=== PATIENT | female | born 1985 | race Caucasian/White ===

== ENCOUNTER 2018-07-22 17:50 | Emergency (ER) | payer MEDICAID ==
--- NOTE | 2018-07-22 19:23 | EDM.PDOC ---
ED HPI GENERAL MEDICAL PROBLEM - General Chief Complaint: General Stated Complaint: DENTAL PAIN AND KIDNEY PAIN Time Seen by Provider: 07/22/18 18:29 Source of Information: Reports: Patient, RN Notes Reviewed - History of Present Illness INITIAL COMMENTS - FREE TEXT/NARRATIVE: 32-year-old female comes in with complaints of dental discomfort, right upper lateral incisors and canine and also complaining of voiding frequency and dysuria. Voiding frequency and dysuria started about 2 or 3 days ago, getting worse and now has radiation of pain into her back as well. Was or vomiting fever or chills. The dental pain she has had for a long long time but that has been more bothersome the last several days. Right Upper Tooth/Teeth Pain Score (Numeric/FACES): 7 Left Flank Pain Score (Numeric/FACES): 6 - Related Data Allergies Allergy/AdvReac Type Severity Reaction Status Date / Time latex Allergy Hives Verified 07/22/18 18:28 c-chlor Allergy Other Uncoded 07/22/18 18:28 Home Meds: Home Meds Acetaminophen/HYDROcodone [[place] 325-5 MG] 1 tab PO Q6H PRN #14 tablet 07/22/18 [Rx] Past Medical History RESPIRATORY SUPPORT TECHNICIAN History: Reports: Other (See Below) Other RESPIRATORY SUPPORT TECHNICIAN History: - Past Surgical History HEENT Surgical History: Reports: Tonsillectomy Social & Family History - Tobacco Use Smoking Status *Q: Current Every Day Smoker Years of Tobacco use: 15 Packs/Tins Daily: 0.5 - Caffeine Use Caffeine Use: Reports: Coffee - Recreational Drug Use Recreational Drug Use: No ED ROS GENERAL - Review of Systems Review Of Systems: See Below Constitutional: Denies: Fever, Chills, Diaphoresis HEENT: Reports: Dental Pain. Denies: Throat Pain Respiratory: Denies: Shortness of Breath Cardiovascular: Denies: Chest Pain GI/Abdominal: Denies: Abdominal Pain, Nausea, Vomiting : Reports: Dysuria, Frequency Musculoskeletal: Reports: Back Pain Neurological: Reports: No Symptoms ED EXAM, GENERAL - Physical Exam Exam: See Below General Appearance: Alert, No Apparent Distress Eye Exam: Bilateral Eye: PERRL Throat/Mouth: Other (Severe cavitation right lateral incisor and right upper canine) Head: Facial Tenderness (Mild right maxillary area). No: Facial Swelling Neck: Supple, Full Range of Motion Respiratory/Chest: No Respiratory Distress, Lungs Clear, Normal Breath Sounds Cardiovascular: Regular Rate, Rhythm GI/Abdominal: Non-Tender Back Exam: Other (Back nontender). No: CVA Tenderness (L), CVA Tenderness (R) Extremities: Normal Inspection Neurological: Alert, No Motor/Sensory Deficits Skin Exam: Warm, Dry, Normal Color Course - Vital Signs Last Recorded V/S: Last Vital Signs Temp 97.2 F 07/22/18 18:21 Pulse 105 H 07/22/18 18:21 Resp 16 07/22/18 18:21 BP 131/98 H 07/22/18 18:21 Pulse Ox 99 07/22/18 18:21 - Orders/Labs/Meds Labs: Laboratory Tests 07/22/18 07/22/18 Range/Units 19:10 19:44 WBC 12.62 H (3.98-10.04) K/mm3 RBC 4.86 (3.98-5.22) M/mm3 Hgb 14.9 (11.2-15.7) gm/L Hct 44.4 (34.1-44.9) % MCV 91.4 (79.4-94.8) fl MCH 30.7 (25.6-32.2) pg MCHC 33.6 (32.2-35.5) g/dl RDW Std Deviation 41.1 (36.4-46.3) fL Plt Count 254 (182-369) K/mm3 MPV 11.0 (9.4-12.3) fl Neut % (Auto) 62.1 (34.0-71.1) % Lymph % (Auto) 29.6 (19.3-51.7) % [place] % (Auto) 7.1 (4.7-12.5) % Eos % (Auto) 0.6 L (0.7-5.8) Baso % (Auto) 0.4 (0.1-1.2) % Neut # (Auto) 7.84 H (1.56-6.13) K/mm3 Lymph # (Auto) 3.73 (1.18-3.74) K/mm3 Banner # (Auto) 0.90 H (0.24-0.36) K/mm3 Eos # (Auto) 0.08 (0.04-0.36) K/mm3 Baso # (Auto) 0.05 (0.01-0.08) K/mm3 Urine Color Yellow (Yellow) Urine Appearance Clear (Clear) Urine pH 6.0 (5.0-8.0) Ur Specific [place] > or = 1.030 (1.005-1.030) Urine Protein Trace H (Negative) Urine Glucose (UA) Negative (Negative) Urine Ketones Trace H (Negative) Urine Occult Blood Negative (Negative) Urine Nitrite Negative (Negative) Urine Bilirubin Negative (Negative) Urine Urobilinogen 0.2 (0.2-1.0) Ur Leukocyte Esterase Negative (Negative) Urine RBC 0-5 (0-5) /hpf Urine WBC 0-5 (0-5) /hpf Ur Epithelial Cells 5-10 H (0-5) /hpf Urine Bacteria Rare (FEW) /hpf Urine Mucus Moderate H (FEW) /hpf Departure - Departure Time of Disposition: 20:06 Disposition: Home, Self-Care 01 Condition: Fair Clinical Impression: Pain, dental - Discharge Information Prescriptions: Acetaminophen/HYDROcodone [[place] 325-5 MG] 1 tab PO Q6H PRN #14 tablet PRN Reason: Pain Referrals: PCP,None [Ordering Only Provider] - Forms: ED Department Discharge Additional Instructions: Amoxicillin 1000 mg twice daily for 1 week or until gone, and 10 you ibuprofen every 6-8 hours for discomfort or consider Aleve 2 tabs twice daily instead of the ibuprofen which would be somewhat more powerful for pain and dental inflammation, you may take Tylenol in addition up to 3 times daily or hydrocodone if needed for severe pain, especially at night to help you rest. Do not take Tylenol and hydrocodone at the same time. Do not drive or work when taking hydrocodone, see dentist as soon as possible.
== END 2018-07-22 20:40 | disposition home or self-care (01) ==
LOC: JD.ED 17:50
DX: K08.89 Other specified disorders of teeth and supporting structures (principal); F17.210 Nicotine dependence, cigarettes, uncomplicated; Z91.040 Latex allergy status; Z88.8 Allergy status to other drugs, medicaments and biological substances
CPT/HCPCS: 36415; 81001; 85025; 99283

== ENCOUNTER 2018-09-22 16:29 | Emergency (ER) | payer MEDICAID ==
[2018-09-22] MEDS ORDERED: Tamsulosin 0.4 MG Cap.ER PO ONE (17:43)
--- NOTE | 2018-09-22 18:06 | EDM.PDOC ---
ED HPI GENERAL MEDICAL PROBLEM - General Chief Complaint: Genitourinary Problem Stated Complaint: KIDNEY STONE Time Seen by Provider: 09/22/18 17:39 Source of Information: Reports: Patient, RN Notes Reviewed History Limitations: Reports: No Limitations - History of Present Illness INITIAL COMMENTS - FREE TEXT/NARRATIVE: The patient states that she developed right flank pain, radiating to her right abdomen, this past 09/20/2018. She states that her urine has been pink. She has had nausea and vomiting. No recent fever, constipation, diarrhea, or urinary symptoms. The patient states that she has a history of kidney stones. She states that she passed a small stone into a urine filter that she already has, around 16:00 this afternoon. She brought the stone with her in a zip lock bag - it is approximately 2 mm in diameter, kacey brown (it could, in fact, be a piece of sand). The patient came to the ED because she states that, despite passing the stone, she continues to have right flank pain. The patient's LMP was approximately 09/15/2018, lasting 5-6 days. Reviewing prior medical records, I see that the patient has been to the ED only once before, on 07/22/2018, with a complaint at that time of dental pain as well as dysuria and urinary frequency. She did not report at that time a history of kidney stones. She did not have CVA tenderness on exam, and her urinalysis was normal, showing no signs of either a UTI or hematuria. She was prescribed 14 tablets of [place]. The patient does not have a PCP. Right Flank Pain Score (Numeric/FACES): 7 - Related Data Allergies Allergy/AdvReac Type Severity Reaction Status Date / Time cefaclor [From Ceclor] Allergy Nausea and Verified 09/22/18 16:51 Vomiting latex Allergy Hives Verified 07/22/18 18:28 c-chlor Allergy Other Uncoded 07/22/18 18:28 Home Meds: Home Meds . [No Known Home Meds] 09/22/18 [History] Past Medical History Endocrine/Metabolic History: Reports: Hyperthyroidism (Grave disease AND Markus thyroiditis? - untreated) - Past Surgical History HEENT Surgical History: Reports: Oral Surgery (wisdom teeth extraction), Tonsillectomy Female Surgical History: Reports: Section (x 3), Tubal Ligation Social & Family History - Tobacco Use Smoking Status *Q: Current Every Day Smoker Years of Tobacco use: 15 Packs/Tins Daily: 1 Packs/Tins Daily Comment: Down from 2 ppd - Caffeine Use Caffeine Use: Reports: Coffee, Energy Drinks, Soda, Tea - Alcohol Use Alcohol Use History: Yes Alcohol Use Frequency: Rarely - Recreational Drug Use Recreational Drug Use: Yes Drug Use in Last 12 Months: Yes Recreational Drug Type: Reports: Marijuana/Hashish (last smoked early August 2018 ), Other (see below) (Last took pill opioids Jun 2018) - Living Situation & Occupation Living situation: Reports: (), with Family (4 kids) Occupation: Unemployed ED ROS GENERAL - Review of Systems Review Of Systems: ROS reveals no pertinent complaints other than HPI. ED EXAM, RENAL/ - Physical Exam Exam: See Below Exam Limited By: No Limitations General Appearance: Alert, WD/WN, No Apparent Distress Eye Exam: Left Eye: Other, Bilateral Eye: EOMI, Normal Inspection Ears: Normal External Exam, Hearing Grossly Normal Nose: Normal Inspection, Normal Mucosa, No Blood Throat/Mouth: Normal Inspection, Normal Lips, Normal Voice, No Airway Compromise Head: Atraumatic, Normocephalic Neck: Normal Inspection, Full Range of Motion Respiratory/Chest: No Respiratory Distress, Lungs Clear, Normal Breath Sounds, No Accessory Muscle Use Cardiovascular: Normal Peripheral Pulses, Regular Rate, Rhythm, No Edema, No Gallop, No JVD, No Murmur, No Rub GI/Abdominal: Normal Bowel Sounds, Soft, Non-Tender, No Organomegaly, No Distention, No Abnormal Bruit, No Mass (Female) Exam: Deferred Rectal (Female) Exam: Deferred Back Exam: Normal Inspection, Full Range of Motion. No: CVA Tenderness (L), CVA Tenderness (R) Extremities: Normal Inspection, Normal Range of Motion, No Pedal Edema, Normal Capillary Refill Neurological: Alert, Oriented, Normal Cognition, No Motor/Sensory Deficits Psychiatric: Normal Affect Skin Exam: Warm, Dry, Intact, Normal Color, No Rash Course - Vital Signs Last Recorded V/S: Last Vital Signs Temp 36.9 C 09/22/18 16:45 Pulse 105 H 09/22/18 16:45 Resp 20 09/22/18 16:45 BP 140/98 H 09/22/18 16:45 Pulse Ox 100 09/22/18 16:45 - Orders/Labs/Meds Labs: Laboratory Tests 09/22/18 Range/Units 17:30 Urine Color Yellow (Yellow) Urine Appearance Clear (Clear) Urine pH 6.0 (5.0-8.0) Ur Specific [place] 1.025 (1.005-1.030) Urine Protein Negative (Negative) Urine Glucose (UA) Negative (Negative) Urine Ketones Negative (Negative) Urine Occult Blood Negative (Negative) Urine Nitrite Negative (Negative) Urine Bilirubin Negative (Negative) Urine Urobilinogen 0.2 (0.2-1.0) Ur Leukocyte Esterase Negative (Negative) Urine RBC 0-5 (0-5) /hpf Urine WBC Not seen (0-5) /hpf Ur Epithelial Cells 5-10 H (0-5) /hpf Urine Bacteria Rare (FEW) /hpf Urine Mucus Moderate H (FEW) /hpf Meds: Medications Discontinued Medications Generic Name Dose Route Start Last Admin Trade Name Freq PRN Reason Stop Dose Admin Tamsulosin HCl 0.4 mg 09/22/18 17:43 09/22/18 18:10 Flomax PO 09/22/18 17:44 0.4 mg ONETIME ONE Administration - Re-Assessments/Exams Free Text/Narrative Re-Assessment/Exam: 09/22/18 18:00 I have some concerns with the patient's story. She reported that she has a history of kidney stones, but did not report that when seen here on 07/22/2018. At that visit, she reported that she had dysuria and urinary frequency, but her urinalysis was completely normal. Now, she reports that she has had right flank pain since 09/20/2018, but did not come to the ED for treatment until after passing the stone. More curious still, the patient's urinalysis is completely normal, with no sign of blood. While it is possible, it is very unusual for a ureterolith to not produce at least microscopic hematuria, and recall that the patient reported that her urine was pink. If that were true, then there should be a large amount of blood in her urine. It is therefore not clear that the item that the patient has in a bag is a passed ureterolith. I am very concerned that she is drug seeking. The patient has been given a single dose of Flomax, which should help with ureteral spasm for up to 24 hours, and I will refer her to the clinic, so that she could potentially have the item analyzed. I am not going to prescribe any opioids. Departure - Departure Time of Disposition: 18:02 Disposition: Home, Self-Care 01 Condition: Good Clinical Impression: Right flank pain - Discharge Information *PRESCRIPTION DRUG MONITORING PROGRAM REVIEWED*: Not Applicable *COPY OF PRESCRIPTION DRUG MONITORING REPORT IN PATIENT [place]: Not Applicable Instructions: Flank Pain, Adult, [id number] Referrals: Binta Domingo PA [Physician Cigarette Vendor] - Forms: ED Department Discharge Additional Instructions: You were seen in the emergency room for right flank pain radiating to your right abdomen since 09/20/2018. Workup in the ER included a urinalysis, which returned completely normal, with no blood or sign of an infection. It is unclear if you had a kidney stone or not. You were treated with the anti-spasm medicine Flomax in the ER. This medicine lasts for about 24 hours. If you did pass a stone, the ureteral spasm should resolve within a few hours. We recommend that you follow-up with Binta Domingo or one of the other providers in the clinic, not only to establish a primary care provider, but also see if they can have the stone analyzed. If any other problems, please do not hesitate to return to the ER.
== END 2018-09-22 18:10 | disposition home or self-care (01) ==
LOC: JD.ED 16:29
DX: R10.9 Unspecified abdominal pain (principal); F17.210 Nicotine dependence, cigarettes, uncomplicated; Z91.040 Latex allergy status; Z88.8 Allergy status to other drugs, medicaments and biological substances
CPT/HCPCS: 81001; 99284; A9270; 99283